=== PATIENT | female | born 1965 | race Caucasian/White ===

== ENCOUNTER 2023-08-22 08:56 | Emergency (ER) | payer MEDICARE, OTHER ==
[~2023-08-22] VITALS: Ht 172.7 cm; Wt 86.2 kg
[2023-08-22] MEDS ORDERED: ALPR0.255 PO (09:15)
[2023-08-22 11:00] LABS: BASOPHILS % (AUTO) 0.8 % (0.0-2.0); DIFFERENTIAL COMMENT 0; EOSINOPHILS # (AUTO) 0.5 K/uL (0.0-0.7); EOSINOPHILS % (AUTO) 8.1 % (0.0-7.0); LYMPHOCYTES # (AUTO) 1.4 K/uL (0.8-4.8); LYMPHOCYTES % (AUTO) 25.4 % (20.5-51.5); MEAN CORPUSCULAR HEMOGLOBIN 25.2 uug (24.7-32.8); MEAN CORPUSCULAR HGB CONC 32 g/dL (32.3-35.6); MONOCYTES # (AUTO) 0.4 K/uL (0.1-1.30); MONOCYTES % (AUTO) 7.4 % (0.0-11.0); NEUTROPHILS # (AUTO) 3.3 K/uL (1.8-8.9); NEUTROPHILS % (AUTO) 58.3 % (38.5-71.5); PLATELET COUNT (AUTO) 496 K/uL (179-408); RED CELL DISTRIBUTION WIDTH 17.1 % (12.3-17.7); WHITE BLOOD COUNT (AUTO) 5.6 K/uL (3.8-11.8)
[2023-08-22 11:12] LABS: RED BLOOD CELL COUNT(AUTO) 2.24 MIL/uL (3.63-4.92)
[2023-08-22 11:13] LABS: CALCIUM 8.5 mg/dL (8.5-10.1); CARBON DIOXIDE 28 mmol/L (21-32); CHLORIDE 102 mmol/L (98-107); CREATININE 0.8 mg/dL (0.6-1.3); GLUCOSE 115 mg/dL (74-106); POTASSIUM 3.5 mmol/L (3.5-5.1); SODIUM SERUM 139 mmol/L (136-145); UREA NITROGEN, BLOOD 29 mg/dL (7-18)
[2023-08-22 11:15] LABS: HEMOGLOBIN 5.7 g/dL (10.9-14.3)
[2023-08-22 11:27] LABS: IRON, SERUM 6 ug/dL (50-175)
[2023-08-22 11:31] LABS: ALANINE AMINOTRANSFERASE 22 U/L (14-59); ALBUMIN 3.4 g/dL (3.4-5.0); ALKALINE PHOSPHATASE 102 U/L (50-136); ASPARTATE AMINOTRANSFERASE 7 U/L (15-37); BILIRUBIN,TOTAL 0.1 mg/dL (0.2-1.0); FERRITIN 8 ng/mL (8-252); TOTAL PROTEIN, SERUM 6.6 g/dL (6.4-8.2)
[2023-08-22 11:44] LABS: BILIRUBIN,DIRECT < 0.1 mg/dL (0.0-0.2)
[2023-08-22 17:29] LABS: BAND % (MANUAL) 4 % (0-10); EOSINOPHILS % (MANUAL) 10 % (0-8); LYMPHOCYTES % (MANUAL) 27 % (20-40); MONOCYTES % (MANUAL) 6 % (2-10); NEUTROPHILS % (MANUAL) 53 % (42-75)
[2023-08-22 17:30] LABS: ANISOCYTOSIS 2+; PLATELET ESTIMATE ADEQUATE
[2023-08-22] MEDS ORDERED: SOD FERRIC GLUC COMPLX/SUCROSE 125 MG in IV NORMAL SALINE 100 ML IV ONE (17:30)
[2023-08-22] MEDS ORDERED: SOD FERRIC GLUC COMPLX/SUCROSE 62.5 MG/5 ML AMPUL IV ONE ×2 (19:54→19:57)
[2023-08-22 21:18] VITALS: O2SAT 98
== END 2023-08-22 21:24 | disposition home or self-care (01) ==
LOC: ER 09:04
DX: D50.9 Iron deficiency anemia, unspecified (principal); Z79.899 Other long term (current) drug therapy
CPT/HCPCS: 36415; 70030-TC; 83550; 85025; 86850; 86900; 86901; 86920; A4606; A4663; J2916; P9016